=== PATIENT | female | born 2000 | race Caucasian/White ===

== ENCOUNTER → 2020-01-07 16:40 | Outpatient (CLI) | payer MEDICAID, SELFPAY ==
[2020-01-07 18:25] LABS: HCG,Quantitative 20028 mIU/ml (0-5.42)
== END ==
PROVIDERS: Visit Provider Nurse Practitioner Obstetrics & Gynecology
DX: Z34.90 Encounter for supervision of normal pregnancy, unspecified, unspecified trimester (principal)
CPT/HCPCS: 36415; 84702

== ENCOUNTER → 2020-01-16 15:09 | Outpatient (CLI) | payer MEDICAID, SELFPAY ==
--- NOTE | 2020-01-16 15:13 | US_ITS ---
PROCEDURE: US OB TRANSVAGINAL CLINICAL INDICATION: confirmation dates of Early Ob ultrasound for dates COMPARISON: No exams were available for comparison FINDINGS: An intrauterine gestational sac is present with a pole with a crown-rump length of 1.31cm correlating to gestational age of 7weeks 4days. heart tones are present with an FHR of 163bpm. Yolk sac is noted. Along the right aspect the gestational sac there is a curvilinear area of decreased echogenicity suspicious for small subchorionic bleed measuring 3 mm in thickness and 13 mm in length. IMPRESSION: Live intrauterine gestation at 7 weeks 4 days with suspected small subchorionic bleed Estimated due date by Ultrasound is 08/30/2020 Dictated by: Curtis Olvera MD 01/16/2020 18:28 Electronically signed by Curtis Olvera MD in [place] 01/16/2020 18:28
== END ==
PROVIDERS: Visit Provider Nurse Practitioner Obstetrics & Gynecology
DX: O26.841 Uterine size-date discrepancy, first trimester (principal)
CPT/HCPCS: 76817

== ENCOUNTER → 2020-01-21 17:14 | Outpatient (CLI) | payer MEDICAID, SELFPAY ==
[2020-01-21 18:10] LABS: Basophils % 0.3 % (0.1-2.0); Eosinophils # 0.1 K/mm3 (0.0-0.4); Eosinophils % 0.9 % (0.1-12.0); Hematocrit 39.8 % (37.0-47.0); Hemoglobin 13.7 g/dL (12.2-16.2); Lymphocytes # 3.9 K/mm3 (0.7-4.5); Lymphocytes % 30.8 % (10-50); Mean Corpuscular HGB Conc 34.5 g/dL (31.8-35.4); Mean Corpuscular Hemoglobin 31.5 pg (27.0-31.2); Mean Corpuscular Volume 91.2 fl (81-99); Mean Platelet Volume 9.1 fl (7.4-10.4); Monocytes # 0.6 K/mm3 (0.1-1.0); Monocytes % 4.4 % (1.7-9.3); Neutrophils % 63.6 % (37.0-80.0); Platelet Count 284 K/mm3 (142-424); Red Blood Count 4.36 M/mm3 (4.20-5.40); Red Cell Distribution Width 12.3 % (11.5-17.5); White Blood Count 12.5 K/mm3 (4.8-10.8)
[2020-01-23 11:24] LABS: HIV Screen 4th Generation wRfx Non Reactive (Non Reactive)
[2020-01-23 15:32] LABS: Hepatitis B Surface Antigen Negative (Negative); Hepatitis C Antibody 0.1 s/co ratio (0.0-0.9); Rapid Plasma Reagin Ab Titer Non Reactive (NonRea<1:1); Rubella Antibodies, IgG <0.90 index (Immune >0.99)
== END ==
PROVIDERS: Visit Provider Nurse Practitioner Obstetrics & Gynecology
DX: Z34.90 Encounter for supervision of normal pregnancy, unspecified, unspecified trimester (principal)
CPT/HCPCS: 36415; 85025; 86592; 86703; 86762; 86850; 87340; 87380; G0432

== ENCOUNTER → 2020-01-26 14:53 | Outpatient (CLI) | payer MEDICAID, SELFPAY ==
--- NOTE | 2020-01-26 14:53 | US_ITS ---
PROCEDURE: US OB TRANSVAGINAL CLINICAL INDICATION: for dates Early Ob ultrasound for dates COMPARISON: US OB TRANSVAGINAL from 01/16/2020 FINDINGS: An intrauterine gestational sac is present with a pole with a crown-rump length of 2.08cm correlating to gestational age of 8weeks 5days. heart tones are present with an FHR of 164bpm. Yolk sac is noted. IMPRESSION: Live IUP at 8 weeks 5 days Estimated due date by Ultrasound is 09/01/2020 Dictated by: Curtis Olvera MD 01/26/2020 16:19 Electronically signed by Curtis Olvera MD in [facility] 01/26/2020 16:19
== END ==
PROVIDERS: PCP Nurse Practitioner Obstetrics & Gynecology; Visit Provider Nurse Practitioner Obstetrics & Gynecology
DX: Z34.90 Encounter for supervision of normal pregnancy, unspecified, unspecified trimester (principal)
CPT/HCPCS: 76817

== ENCOUNTER → 2020-02-05 14:49 | Outpatient (CLI) | payer MEDICAID, SELFPAY ==
[2020-02-05 16:55] LABS: HCG,Quantitative 67642 mIU/ml (0-5.42)
== END ==
PROVIDERS: Visit Provider Nurse Practitioner Obstetrics & Gynecology
DX: Z34.90 Encounter for supervision of normal pregnancy, unspecified, unspecified trimester (principal)
CPT/HCPCS: 36415; 84702

== ENCOUNTER 2020-02-05 15:10 | Emergency (ER) | payer MEDICAID, SELFPAY ==
[2020-02-05 15:24] VITALS: BP 130/70; PULSE 80; RESP 18; TEMP 36.6; O2SAT 99
--- NOTE | 2020-02-05 15:34 | HMH.EDGENADL ---
ED Disposition Clinical Impression: Vaginal bleeding affecting early , Intrauterine Disposition: Home, Self-Care Condition on Discharge: Good Instructions: DI for Threatened Additional Instructions: You have been evaluated for bleeding in the first trimester of . This could be a normal or a threatened miscarriage. 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 Return to the emergency department if you have any new or worsening symptoms, vomiting, increased bleeding, increased pain, any other concerns. Referrals: PCP,No [Primary Care Provider] - Time of Disposition: 16:51 - Critical Care Critical Care Time: No Attestation: On 02/05/20, the high probability of a clinically significant, sudden or life threatening deterioration of the following system(s) required my full and direct attention, intervention and personal management. The time I documented below is in addition to time spent performing reported procedures but includes the following listed in this critical care notation. Medical Decision Making - Medical Records Medical records reviewed: Yes: I reviewed the patient's medical records. - Zachary Inquiry Pt receiving controlled substance: No Vital Signs: 02/05/20 15:24 02/05/20 15:42 02/05/20 16:12 Temperature 97.8 F Temperature Source Oral Pulse Rate Pulse Rate [Radial] 80 77 78 Respiratory Rate 18 20 18 Blood Pressure Blood Pressure [Right Arm] 130/70 144/82 H 112/70 Blood Pressure Mean [Right Arm] 90 102 84 Blood Pressure Source Blood Pressure Source [Right Arm] Automatic Cuff Automatic Cuff Automatic Cuff Blood Pressure Position Blood Pressure Position [Right Arm] Sitting Supine Supine 02 Sat by Pulse Oximetry 99 99 99 Oxygen Delivery Method Room Air Room Air Room Air 02/05/20 17:01 Temperature 97.8 F Temperature Source Oral Pulse Rate 78 Pulse Rate [Radial] Respiratory Rate 18 Blood Pressure 112/70 Blood Pressure [Right Arm] Blood Pressure Mean [Right Arm] Blood Pressure Source Automatic Cuff Blood Pressure Source [Right Arm] Blood Pressure Position Sitting Blood Pressure Position [Right Arm] 02 Sat by Pulse Oximetry Oxygen Delivery Method Room Air - Lab Data Lab Results 02/05/20 16:09: WBC 12.8 H, RBC 4.45, Hgb 14.2, Hct 40.3, MCV 90.5, MCH 31.9 H, MCHC 35.2, RDW 12.3, Plt Count 261, MPV 8.6, Neut % (Auto) 71.4, Lymph % (Auto) 23.5, [place] % (Auto) 3.9, Eos % (Auto) 0.9, Baso % (Auto) 0.2, Neut # (Auto) 9.2 H, Lymph # (Auto) 3.0, [place] # (Auto) 0.5, Eos # (Auto) 0.1, Baso # (Auto) 0.0 02/05/20 16:18: Urine Color Yellow, Urine Appearance Clear, Urine pH 5.5, Ur Specific [place] >= 1.030, Urine Protein Negative, Urine Glucose (UA) Negative, Urine Ketones Negative, Urine Blood Trace-i, Urine Nitrate Negative, Urine Bilirubin Negative, Urine Urobilinogen 0.2, Ur Leukocyte Esterase Negative, Urine WBC Occasional, Ur Squamous Epith Cells 3-5, Urine Bacteria Trace Result diagrams: 02/05/20 16:09 Orders (Tests/Meds): ORDERS Category Date Time Status HCG,Quantitative Stat Lab 02/05/20 16:09 Received Medical Decision Narrative: In summary this is a 19-year-old G1, P0 female presenting to the emergency department with first trimester vaginal bleeding. Patient is in no acute distress on arrival. Vital signs are stable, no tachycardia. Differential diagnoses include implantation bleed, normal intrauterine , threatened miscarriage. Plan to obtain CBC, beta hCG, urinalysis. Patient has blood bank results that states she is be positive. Does not require RhoGam. Laboratory results are generally unremarkable. No significant anemia. Urinalysis does not show signs of urinary tract infection. Bedside ultrasound shows a intrauterine with cardiac activity. Patient given instructions for conservative management and threatened miscarriage. She will follow-up with her OB/G
[2020-02-05 15:42] VITALS: BP 144/82; PULSE 77; RESP 20; O2SAT 99
[2020-02-05 16:12] VITALS: BP 112/70; PULSE 78; RESP 18; O2SAT 99
[2020-02-05 16:26] LABS: Microscopic, Urine URINE MICROSCOPIC (MICROSCOPIC)
[2020-02-05 16:29] LABS: Appearance,Urine CLEAR (Clear); Bilirubin,Urine Negative (Negative); Blood, Urine TRACE-I (Negative); Color,Urine YELLOW (Yellow); Glucose,Urine (UA) Negative (Negative); Ketones,Urine Negative (Negative); Leukocyte Esterase,Urine Negative (Negative); Nitrate,Urine Negative (Negative); PH,Urine 5.5 (5.0-8.5); Protein,Urine Negative (Negative); Specific Gravity, Urine >= 1.030 (1.005-1.030); Urobilinogen,Urine 0.2 EU/dl (0.2)
[2020-02-05 16:30] LABS: Basophils % 0.2 % (0.1-2.0); Eosinophils # 0.1 K/mm3 (0.0-0.4); Eosinophils % 0.9 % (0.1-12.0); Hematocrit 40.3 % (37.0-47.0); Hemoglobin 14.2 g/dL (12.2-16.2); Lymphocytes % 23.5 % (10-50); Mean Corpuscular HGB Conc 35.2 g/dL (31.8-35.4); Mean Corpuscular Hemoglobin 31.9 pg (27.0-31.2); Mean Corpuscular Volume 90.5 fl (81-99); Mean Platelet Volume 8.6 fl (7.4-10.4); Monocytes # 0.5 K/mm3 (0.1-1.0); Monocytes % 3.9 % (1.7-9.3); Neutrophils # 9.2 K/mm3 (1.8-7.8); Neutrophils % 71.4 % (37.0-80.0); Platelet Count 261 K/mm3 (142-424); Red Blood Count 4.45 M/mm3 (4.20-5.40); Red Cell Distribution Width 12.3 % (11.5-17.5); White Blood Count 12.8 K/mm3 (4.8-10.8)
[2020-02-05 16:50] LABS: Bacteria,Urine Trace /lpf; WBC,Urine Occasional #/hpf (0-3)
[2020-02-05 17:01] VITALS: BP 112/70; PULSE 78; RESP 18; TEMP 36.6; O2SAT 99
== END 2020-02-05 17:03 | disposition home or self-care (01) ==
PROVIDERS: Emergency Provider Emergency Medicine
DX: O20.9 Hemorrhage in early pregnancy, unspecified (principal); Z3A.10 10 weeks gestation of pregnancy
CPT/HCPCS: 81001; 84702; 85025; 99283

== ENCOUNTER → 2020-02-10 17:34 | Outpatient (CLI) | payer MEDICAID, SELFPAY ==
[2020-02-10 23:59] LABS: HCG,Quantitative 60475 mIU/ml (0-5.42)
== END ==
PROVIDERS: Visit Provider Nurse Practitioner Obstetrics & Gynecology
DX: Z34.90 Encounter for supervision of normal pregnancy, unspecified, unspecified trimester (principal)
CPT/HCPCS: 36415; 84702

== ENCOUNTER 2020-02-23 17:15 | Emergency (ER) | payer MEDICAID, SELFPAY ==
[2020-02-23 17:47] VITALS: BP 127/74; PULSE 91; RESP 14; TEMP 36.7; O2SAT 96; BMI 22.4
--- NOTE | 2020-02-23 18:20 | HMH.EDUTC ---
[facility] – [place] Disposition Clinical Impression: Nausea & vomiting Qualifiers: Vomiting type: unspecified Vomiting Intractability: unspecified Qualified Code(s): R11.2 - Nausea with vomiting, unspecified Disposition: Home, Self-Care Condition on Discharge: Good Instructions: Support (Alternative Therapy), DI for Hyperemesis Gravidarum, Preventing the Spread of Coronavirus Discharge Instructions Additional Instructions: ? Drink extra fluids with and between meals. If you have difficulty drinking, try very small amounts of water or suck on ice chips. ? Avoid fruit juices, as these do not replace minerals and can actually increase diarrhea. ? Children and adults can use sports drinks to replenish electrolytes. Younger children and infants should use products formulated for children, like oral rehydration solutions. ? Eat food in small amounts and let your stomach recover. ? Get lots of rest. You may feel tired or weak. ? No greasy or fried foods for the next 24-48 hours BRAT diet Bananas Rice Apples and [place] ? Make sure to drink plenty of liquids ? Return if needed ? Straight to ER if any life threatening symptoms ? Follow up with family doctor in the next 48-72 hours if no improvement or any worsening of symptoms Follow up with Dr Porter if no improvement in vomiting Use Phenergan suppository if you are unable to keep anything down as you was was instructed in the [facility] Return if needed You was tested for COVID 19 call back to the [facility] for your results tomorrow to see if they are back No work until negative COVID test Straight to ER if any life threatening symptoms Prescriptions: Promethazine HCl [Phenergan 12.5mg Supp Take Home Pack (4)] 12.5 anson RC Q6HP PRN #1 anson PRN Reason: Vomiting Promethazine HCl [Phenergan 12.5mg tablet] 12.5 mg PO Q6H PRN #12 tab PRN Reason: Vomiting Transmission Status: Pending to [id number] Referrals: Peter Siddiqui APRN [Primary Care Provider] - As needed Forms: Work/School Release Time of Disposition: 19:02 Medical Decision Making - Zachary Inquiry Pt receiving controlled substance: No Zachary was queried for this patient: No Vital Signs: 02/23/20 17:47 Temperature 98.0 F Temperature Source Oral Pulse Rate [Right Brachial] 91 H Respiratory Rate 14 Blood Pressure [Right Arm] 127/74 Blood Pressure Mean [Right Arm] 91 Blood Pressure Source [Right Arm] Automatic Cuff Blood Pressure Position [Right Arm] Sitting 02 Sat by Pulse Oximetry 96 Oxygen Delivery Method Room Air Orders (Tests/Meds): ORDERS Category Date Time Status Coronavirus 19 Swab (OUTPT) Routine Lab 02/23/20 17:55 Received - Physician Consults Physician Consulted: German Time: 18:50 Reason -: Gynocological Eval/Care Comment/Response: Spoke with Dr German HARP and informed him of patient being 13wks OB having nausea and vomiting on multiple times today advised give her take home pack of phenergan suppositories to use if she is unable to keep anything down and give her prescription for oral Phenergan 12.5 Medical Decision Narrative: No vomiting since arrival [facility] [place] HPI - General Stated complaint: Needs checked out, Dr leal for work Time Seen by Provider: 02/23/20 18:21 Mode of Arrival: Ambulatory Source of Information: Patient Limitations: No Limitations Description of Symptoms (Recalled from Triage Doc. by RN): PATIENT IS 13 WEEKS , C/O COUGH AND NAUSEA. HER EMPLOYER IS REQUESTING HER TO GET A COVID TEST HEENT Symptoms (Recalled from RN notes): No Resp Symptoms (Recalled from RN notes): Yes Skin Symptoms (Recalled from RN notes): No MS Symptoms (Recalled from RN notes): No Functional Status (Recalled from RN notes): WNL - History of Present Illness Provider Complaint: Patient states that she has been having nausea and vomiting on and off throughout her 13wks of States that today she has been having runny nose and cough along with nausea and vomiting State that she has vomited aroun
[2020-02-23 19:09] VITALS: BP 127/74; PULSE 91; RESP 14; TEMP 36.7; O2SAT 96
== END 2020-02-23 19:18 | disposition home or self-care (01) ==
PROVIDERS: Emergency Provider Nurse Practitioner; PCP Nurse Practitioner Family
DX: Z20.828 Contact with and (suspected) exposure to other viral communicable diseases (principal); O21.0 Mild hyperemesis gravidarum; Z3A.13 13 weeks gestation of pregnancy; R05 Cough
CPT/HCPCS: 99201; U0003

== ENCOUNTER → 2020-03-24 14:33 | Outpatient (CLI) | payer MEDICAID, SELFPAY ==
[2020-03-28 04:06] LABS: AFP Value 57.1 ng/mL (.); DIA Value 313.64 pg/mL (.); DSR (Second Trimester) 1 IN 9999 (.); Maternal Age At EDD 22.5 yr (.); OSBR Risk 1 IN 3133 (.); Results Report (.); hCG MoM 0.44 (.); hCG Value 16146 mIU/mL (.); uE3 MoM 1.35 (.); uE3 Value 1.55 ng/mL (.)
[2020-03-28 14:02] LABS: Gestat. Age Based On EDD (.)
== END ==
PROVIDERS: Visit Provider Nurse Practitioner Obstetrics & Gynecology
DX: Z34.90 Encounter for supervision of normal pregnancy, unspecified, unspecified trimester (principal)
CPT/HCPCS: 36415; 82106

== ENCOUNTER 2020-03-31 20:14 | Emergency (ER) | payer MEDICAID, SELFPAY ==
[2020-03-31 20:24] VITALS: BP 131/70; PULSE 79; RESP 14; TEMP 36.7; O2SAT 96; BMI 26.1
[2020-03-31 20:36] LABS: Microscopic, Urine URINE MICROSCOPIC (MICROSCOPIC)
[2020-03-31 20:40] LABS: Appearance,Urine CLEAR (Clear); Bilirubin,Urine Negative (Negative); Blood, Urine Negative (Negative); Color,Urine YELLOW (Yellow); Glucose,Urine (UA) Negative (Negative); Ketones,Urine 1+ (Negative); Leukocyte Esterase,Urine Negative (Negative); Nitrate,Urine Negative (Negative); Protein,Urine Negative (Negative); Specific Gravity, Urine >= 1.030 (1.005-1.030); Urobilinogen,Urine 0.2 EU/dl (0.2)
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
--- NOTE | 2020-03-31 20:47 | CT_ITS ---
PROCEDURE: CT CERVICAL SPINE WO CON CLINICAL INDICATION: fall Posttraumatic pain, Neck injury with pain, contusion/abrasion or hematoma, cervical sprain/strain the COMPARISON: No exams were available for comparison TECHNIQUE: Axial images obtained with sagittal and coronal reformats. All CT scans at the facility use one or more dose reduction, viz: automated exposure control, ma/kV adjustment per patient size (including targeted exams where dose is matched to indication, i.e. head), or iterative reconstruction technique. Axial spiral CT scanning performed of the cervical spine beginning at the base of the skull and continuing to the upper T-spine. 3-D multiplanar reconstruction with 3-D manipulation of volumetric data set in image rendering was completed by the radiologist and/or technologist with the supervision of the radiologist on independent workstation. FINDINGS: There is straightening of the cervical lordosis. No fracture or dislocation. No lytic or blastic change. No prevertebral soft tissue swelling. Small retention cyst is present in the sphenoid sinus laterally on the left. IMPRESSION: 1. No acute fracture. 2. There is straightening/reversal of the normal lordosis which may be due to patient positioning or muscle spasm. Dictated by: Curtis Olvera MD 04/01/2020 09:22 Curtis Olvera MD in [place] 04/01/2020 09:22
[2020-03-31 20:50] LABS: Bacteria,Urine 2+ /lpf
[2020-03-31 20:51] LABS: Basophils % 0.2 % (0.1-2.0); Eosinophils # 0.1 K/mm3 (0.0-0.4); Eosinophils % 0.7 % (0.1-12.0); Hematocrit 43.1 % (37.0-47.0); Hemoglobin 14.9 g/dL (12.2-16.2); Lymphocytes # 2.3 K/mm3 (0.7-4.5); Lymphocytes % 17.1 % (10-50); Mean Corpuscular HGB Conc 34.4 g/dL (31.8-35.4); Mean Corpuscular Hemoglobin 31.9 pg (27.0-31.2); Mean Corpuscular Volume 92.7 fl (81-99); Mean Platelet Volume 8.4 fl (7.4-10.4); Monocytes # 0.6 K/mm3 (0.1-1.0); Monocytes % 4.5 % (1.7-9.3); Neutrophils # 10.7 K/mm3 (1.8-7.8); Neutrophils % 77.6 % (37.0-80.0); Platelet Count 312 K/mm3 (142-424); Red Blood Count 4.65 M/mm3 (4.20-5.40); Red Cell Distribution Width 12.7 % (11.5-17.5); White Blood Count 13.8 K/mm3 (4.8-10.8)
[2020-03-31 20:52] LABS: Amphetamine/Metha Screen,Urine Negative ng/ml (<1000)
[2020-03-31 20:52] LABS: Chloride 102 mmol/L (98-107); Potassium 3.8 mmoL/L (3.5-5.1); Sodium 137 mmol/L (136-145)
[2020-03-31 20:53] LABS: Barbiturates Screen,Urine Negative ng/ml (<200)
[2020-03-31 20:54] LABS: Benzodiazepines Screen,Urine Negative ng/ml (<200); Cannabinoid Screen,Urine Negative ng/ml (<50)
[2020-03-31 20:55] LABS: Anion Gap 13.8 mEq/L (5-15); Blood Urea Nitrogen 9 mg/dl (7-17); Carbon Dioxide 25 mmol/L (22.0-30.0); Creatinine Clearance Estimated 248 mL/min (50-200); Estimated Glomerular Filt Rate 200 ml/min (>60); GFR (African American) 242 ML/MIN (>60)
[2020-03-31 20:55] LABS: Cocaine Screen,Urine Negative ng/ml (<300); Methadone Screen,Urine Negative ng/ml (<300)
[2020-03-31 20:56] LABS: Opiate Screen,Urine Negative ng/ml (<300)
[2020-03-31 20:56] LABS: Calcium 9.7 mg/dl (8.4-10.2); Glucose 98 mg/dl (74-100)
[2020-03-31 20:57] LABS: Phencyclidine Screen,Urine Negative ng/ml (<25)
--- NOTE | 2020-03-31 21:00 | PC.NURSE ---
pt to CT at this time
--- NOTE | 2020-03-31 21:23 | PC.NURSE ---
cleared patients cspine with the [place] cspine rules
[2020-03-31 21:35] VITALS: BP 107/62; PULSE 87; RESP 16; O2SAT 99
[2020-03-31 22:01] VITALS: BP 110/68; PULSE 71; RESP 18; O2SAT 100
[2020-03-31 22:19] VITALS: BP 110/68; PULSE 71; RESP 18; TEMP 36.7; O2SAT 100
== END 2020-03-31 22:24 | disposition home or self-care (01) ==
PROVIDERS: Emergency Provider Emergency Medicine; PCP Nurse Practitioner Family
DX: R55 Syncope and collapse (principal); Z3A.18 18 weeks gestation of pregnancy; S01.81XA Laceration without foreign body of other part of head, initial encounter; W18.39XA Other fall on same level, initial encounter; Y92.89 Other specified places as the place of occurrence of the external cause
CPT/HCPCS: 12011; 72125; 80048; 80305; 81001; 85025; 87086; 96365; 99284

== ENCOUNTER → 2020-04-14 13:15 | Outpatient (CLI) | payer MEDICAID, SELFPAY ==
--- NOTE | 2020-04-14 13:15 | US_ITS ---
PROCEDURE: US OB /MATERNAL DETAIL CLINICAL INDICATION: 20 week gestation Anatomy scan COMPARISON: US US OB TRANSVAGINAL from 01/26/2020 FINDINGS: There is a single live fetus which is in cephalic presentation. heart and body motion is noted. The cervix is closed and measures 3 cm. The placenta is anterior and grade 1. Complete survey performed and was unremarkable on the submitted images as in PACS. No discrete anomalies identified on survey imaging by technologist. Active fetus. Three-vessel cord with satisfactory umbilical cord insertion. 4- chamber heart noted. Survey of brain & ventricles Unremarkable. Face and neck survey unremarkable. Diaphragm and chest views unremarkable. Abdomen: Both kidneys noted and unremarkable. Stomach noted and satisfactory. Spine: Survey of the spine satisfactory with no anomalies identified nor imaged. Both arms and legs noted. Amniotic Fluid: Adequate. Maternal adnexa: No significant findings. Measurements: Average ultrasound age 20weeks 3days. Gestational Age 20weeks Estimated due date by ultrasound age 0208/29/2020. Estimated weight 343g BPD = 20weeks 5days OFD = 21weeks 2days HC = 20weeks 2days AC = 20weeks 3days FL = 20weeks 1day Growth Percentile= 62Percent% Heart Rate = 138bpm Cerebellum = 21weeks 2days Humerus = 20weeks 5days HC/AC is 1.17 CI is 0.76 FL/BPD is 0.67 FL/AC is 0.21 IMPRESSION: Live IUP in cephalic presentation with an average ultrasound age of 20 weeks 3 days. No obvious anomalies. Please see above for detail Dictated by: Curtis Olvera MD 04/15/2020 11:49 Curtis Olvera MD in [place] 04/15/2020 11:49
== END ==
PROVIDERS: PCP Nurse Practitioner Family; Visit Provider Nurse Practitioner Obstetrics & Gynecology
DX: Z34.90 Encounter for supervision of normal pregnancy, unspecified, unspecified trimester (principal); Z3A.20 20 weeks gestation of pregnancy
CPT/HCPCS: 76811

== ENCOUNTER → 2020-06-02 10:25 | Outpatient (CLI) | payer MEDICAID, SELFPAY ==
[2020-06-02 20:56] LABS: Glucose,Fasting 79 mg/dl (74-100)
[2020-06-02 20:57] LABS: Glucose 1 Hour 122 mg/dL (74-100)
== END ==
PROVIDERS: Visit Provider Nurse Practitioner Obstetrics & Gynecology
DX: Z34.90 Encounter for supervision of normal pregnancy, unspecified, unspecified trimester (principal); Z3A.24 24 weeks gestation of pregnancy
CPT/HCPCS: 36415; 82951

== ENCOUNTER → 2020-06-09 18:19 | Outpatient (CLI) | payer MEDICAID, SELFPAY ==
[2020-06-09 18:20] LABS: Microscopic, Urine URINE MICROSCOPIC (MICROSCOPIC)
[2020-06-09 18:44] LABS: Appearance,Urine CLEAR (Clear); Bilirubin,Urine Negative (Negative); Blood, Urine Negative (Negative); Color,Urine YELLOW (Yellow); Glucose,Urine (UA) Negative (Negative); Ketones,Urine TRACE (Negative); Leukocyte Esterase,Urine Negative (Negative); Nitrate,Urine Negative (Negative); PH,Urine 5.5 (5.0-8.5); Protein,Urine Negative (Negative); Specific Gravity, Urine 1.025 (1.005-1.030); Urobilinogen,Urine 0.2 EU/dl (0.2)
== END ==
PROVIDERS: Visit Provider Nurse Practitioner Obstetrics & Gynecology
DX: Z34.90 Encounter for supervision of normal pregnancy, unspecified, unspecified trimester (principal); Z3A.28 28 weeks gestation of pregnancy
CPT/HCPCS: 81001

== ENCOUNTER 2020-06-30 07:57 | Outpatient (CLI) | payer MEDICAID, SELFPAY ==
[2020-06-30 08:20] VITALS: BMI 28.1
[2020-06-30 08:27] VITALS: BP 128/91; PULSE 97; RESP 18; TEMP 36.6; O2SAT 99; BMI 29.1
[2020-06-30 08:33] LABS: Appearance,Urine CLEAR (Clear); Bilirubin,Urine Negative (Negative); Blood, Urine Negative (Negative); Color,Urine YELLOW (Yellow); Glucose,Urine (UA) Negative (Negative); Ketones,Urine Negative (Negative); Leukocyte Esterase,Urine Negative (Negative); Microscopic, Urine URINE MICROSCOPIC (MICROSCOPIC); Nitrate,Urine Negative (Negative); Protein,Urine Negative (Negative); Specific Gravity, Urine 1.015 (1.005-1.030); Urobilinogen,Urine 0.2 EU/dl (0.2)
[2020-06-30 08:43] LABS: Amphetamine/Metha Screen,Urine Negative ng/ml (<1000)
[2020-06-30 08:44] LABS: Barbiturates Screen,Urine Negative ng/ml (<200); Benzodiazepines Screen,Urine Negative ng/ml (<200)
[2020-06-30 08:45] LABS: Cannabinoid Screen,Urine Negative ng/ml (<50)
[2020-06-30 08:46] LABS: Cocaine Screen,Urine Negative ng/ml (<300); Methadone Screen,Urine Negative ng/ml (<300)
[2020-06-30 08:47] LABS: Opiate Screen,Urine Negative ng/ml (<300); Phencyclidine Screen,Urine Negative ng/ml (<25)
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
== END 2020-06-30 12:51 | disposition home or self-care (01) ==
LOC: OBOUT 08:04 → OB 08:04
PROVIDERS: PCP Nurse Practitioner Family; Visit Provider Nurse Practitioner Obstetrics & Gynecology
DX: O26.899 Other specified pregnancy related conditions, unspecified trimester (principal); Z3A.31 31 weeks gestation of pregnancy; V89.2XXA Person injured in unspecified motor-vehicle accident, traffic, initial encounter
CPT/HCPCS: 59025; 80305; 81001; G0463

== ENCOUNTER → 2020-08-04 16:40 | Outpatient (CLI) | payer MEDICAID, SELFPAY | LOC: LAB 16:41 → LAB.DROPOF 16:44 | PROVIDERS: Visit Provider Nurse Practitioner Obstetrics & Gynecology | DX: Z34.90 Encounter for supervision of normal pregnancy, unspecified, unspecified trimester (principal) | CPT/HCPCS: 86403 ==

== ENCOUNTER 2020-08-27 15:31 | Outpatient (CLI) | payer MEDICAID, SELFPAY ==
[2020-08-27 16:24] VITALS: BP 132/87; PULSE 110; RESP 16; TEMP 36.5; O2SAT 96; BMI 30.4
[2020-08-27 17:08] LABS: Microscopic, Urine URINE MICROSCOPIC (MICROSCOPIC)
[2020-08-27 17:16] LABS: Appearance,Urine CLEAR (Clear); Bilirubin,Urine Negative (Negative); Blood, Urine Negative (Negative); Color,Urine YELLOW (Yellow); Glucose,Urine (UA) Negative (Negative); Ketones,Urine Negative (Negative); Leukocyte Esterase,Urine Negative (Negative); Nitrate,Urine Negative (Negative); Protein,Urine Negative (Negative); Specific Gravity, Urine 1.015 (1.005-1.030); Urobilinogen,Urine 0.2 EU/dl (0.2)
[2020-08-27 17:27] LABS: Amphetamine/Metha Screen,Urine Negative ng/ml (<1000); Benzodiazepines Screen,Urine Negative ng/ml (<200)
[2020-08-27 17:28] LABS: Barbiturates Screen,Urine Negative ng/ml (<200)
[2020-08-27 17:29] LABS: Cannabinoid Screen,Urine Negative ng/ml (<50); Cocaine Screen,Urine Negative ng/ml (<300)
[2020-08-27 17:30] LABS: Bacteria,Urine 2+ /lpf; Methadone Screen,Urine Negative ng/ml (<300); WBC,Urine Occasional #/hpf (0-3)
[2020-08-27 17:31] LABS: Opiate Screen,Urine Negative ng/ml (<300)
[2020-08-27 17:32] LABS: Phencyclidine Screen,Urine Negative ng/ml (<25)
== END 2020-08-27 17:35 | disposition home or self-care (01) ==
LOC: OBOUT 15:34 → OB 15:35
PROVIDERS: PCP Nurse Practitioner Obstetrics & Gynecology; Visit Provider Nurse Practitioner Obstetrics & Gynecology
DX: O47.03 False labor before 37 completed weeks of gestation, third trimester (principal); Z3A.39 39 weeks gestation of pregnancy
CPT/HCPCS: 59025; 80305; 81001; 87086; G0463

== ENCOUNTER → 2020-08-31 07:55 | Outpatient (CLI) | payer MEDICAID, SELFPAY | PROVIDERS: PCP Nurse Practitioner Family; Visit Provider Nurse Practitioner Obstetrics & Gynecology | DX: Z34.90 Encounter for supervision of normal pregnancy, unspecified, unspecified trimester (principal); Z20.822 Contact with and (suspected) exposure to COVID-19 | CPT/HCPCS: U0003 ==

== ENCOUNTER 2020-09-01 05:06 | Inpatient (IN) | payer MEDICAID, SELFPAY ==
[2020-09-01 05:10] VITALS: BMI 30.6
[2020-09-01 05:15] VITALS: BP 142/84; PULSE 103; RESP 18; TEMP 36.4; O2SAT 98; BMI 30.6
[2020-09-01 05:24] VITALS: BP 142/84; PULSE 103; RESP 18; TEMP 36.4; O2SAT 98
[2020-09-01 06:04] LABS: Microscopic, Urine URINE MICROSCOPIC (MICROSCOPIC)
[2020-09-01 06:15] LABS: Appearance,Urine CLEAR (Clear); Bilirubin,Urine Negative (Negative); Blood, Urine Negative (Negative); Color,Urine YELLOW (Yellow); Glucose,Urine (UA) Negative (Negative); Ketones,Urine Negative (Negative); Leukocyte Esterase,Urine Negative (Negative); Nitrate,Urine Negative (Negative); PH,Urine 5.5 (5.0-8.5); Protein,Urine Negative (Negative); Specific Gravity, Urine >= 1.030 (1.005-1.030); Urobilinogen,Urine 0.2 EU/dl (0.2)
[2020-09-01 06:26] LABS: Amphetamine/Metha Screen,Urine Negative ng/ml (<1000)
[2020-09-01 06:27] LABS: Barbiturates Screen,Urine Negative ng/ml (<200); Benzodiazepines Screen,Urine Negative ng/ml (<200)
[2020-09-01 06:28] LABS: Cannabinoid Screen,Urine Negative ng/ml (<50)
[2020-09-01 06:29] LABS: Cocaine Screen,Urine Negative ng/ml (<300); Methadone Screen,Urine Negative ng/ml (<300)
[2020-09-01 06:30] LABS: Opiate Screen,Urine Negative ng/ml (<300)
[2020-09-01 06:31] LABS: Phencyclidine Screen,Urine Negative ng/ml (<25)
[2020-09-01 06:58] LABS: Basophils % 0.2 % (0.1-2.0); Eosinophils # 0.1 K/mm3 (0.0-0.4); Eosinophils % 0.9 % (0.1-12.0); Hematocrit 37.4 % (37.0-47.0); Hemoglobin 12.6 g/dL (12.2-16.2); Lymphocytes # 3.1 K/mm3 (0.7-4.5); Lymphocytes % 23.2 % (10-50); Mean Corpuscular HGB Conc 33.8 g/dL (31.8-35.4); Mean Corpuscular Hemoglobin 31.5 pg (27.0-31.2); Mean Corpuscular Volume 93.3 fl (81-99); Mean Platelet Volume 9.2 fl (7.4-10.4); Monocytes # 0.7 K/mm3 (0.1-1.0); Neutrophils # 9.3 K/mm3 (1.8-7.8); Neutrophils % 70.7 % (37.0-80.0); Platelet Count 292 K/mm3 (142-424); Red Blood Count 4.01 M/mm3 (4.20-5.40); Red Cell Distribution Width 13.1 % (11.5-17.5); White Blood Count 13.2 K/mm3 (4.8-10.8)
--- NOTE | 2020-09-01 08:50 | HMH.PHAINT ---
MEDICATION RECONCILIATION COMPLETED ON PATIENT USING EXTERNAL FILL HISTORY FROM PHARMACY. -PEDRO [place], JBD
--- NOTE | 2020-09-01 09:21 | HMH.OBAPHP ---
OB - H&P: HPI Antepartum - History of Present Illness Chief complaint: Term History of present illness: She is a 20-year-old 1 para 0 at 40 weeks gestational age. Her due date is today. As result of that we have elected to bring her in for induction of labor at term. - History of Present care: good care Ultrasounds: normal 1st trimester US, normal mid trimester US Medical complications: none [facility] History I have reviewed the patient's past medical history: Yes *Have you ever received a pneumonia vaccine?: No *Have you received a flu vaccine this season?: No Other Medical History: Reports: Other Laterality Cases: Right: Other Other Surgeries: Yes: No Previous Surgery. No: Amputation: No Fractures: Yes - *Social History Smoking Status: Never smoker Alcohol Intake: never Alcohol Intake Frequency:: other Substance Use Type: denies use *Occupational Status:: unemployed *Travel in the last 8 weeks: None Family Hx:: Cancer, Diabetes MECHANISM ASSEMBLER history: No MECHANISM ASSEMBLER history Para: 0 Review of Systems - Review of Systems Review of systems:: pertinent systems reviewed and negative unless documented below Meds Home Medications Medication Instructions Recorded Confirmed Type ondansetron 4 mg disintegrating 4 mg PO Q6H PRN 30 Days #30 tab 06/23/20 09/01/20 Rx tablet Fluoxetine HCl [Prozac] 20 mg PO DAILY 08/27/20 09/01/20 History Vit Calc,Iron,Folic [Kpn] 1 tab PO DAILY 08/27/20 09/01/20 History Allergies Allergy/AdvReac Type Severity Reaction Status Date / Time latex Allergy Verified 08/25/20 10:58 OB - H&P: Exam - Physical Exam Vital signs: Temp Pulse Resp BP Pulse Ox 97.5 F L 103 H 18 142/84 H 98 09/01/20 05:24 09/01/20 05:24 09/01/20 05:24 09/01/20 05:24 09/01/20 05:24 - Constitutional no acute distress - Routine HEENT Exam Head: Present: normocephalic Eye: Present: EOMI, PERRL ENT: Present: mucous membranes moist - Routine Neck Exam Present: supple, full ROM - Routine Respiratory Exam Absent: accessory muscle use (good air entry bilaterally), respiratory distress, wheezes, crackles - Routine Cardiovascular Exam Present: RRR. Absent: murmur - Routine Abdominal Exam Present: soft, normoactive bowel sounds. Absent: tenderness, distended, guarding - Routine Rectal Exam Patient deferred: visual exam, digital exam - Routine Exam Patient deferred: external exam, groin exam, perineal exam - Routine Extremities Exam Present: full ROM. Absent: cyanosis, edema - Routine Skin Exam Present: intact. Absent: cyanosis - Routine Neurological Exam Present: alert, oriented X3 - Routine Psychiatric Exam Present: normal affect OB - Results - Labs Labs: Short CBC 09/01/20 Range/Units 05:30 WBC 13.2 H (4.8-10.8) K/mm3 Hgb 12.6 (12.2-16.2) g/dL Hct 37.4 (37.0-47.0) % Plt Count 292 (142-424) K/mm3 Urine 09/01/20 Range/Units 05:30 Urine Color Yellow (Yellow) Urine Appearance Clear (Clear) Urine pH 5.5 (5.0-8.5) Ur Specific [place] >= 1.030 (1.005-1.030) Urine Protein Negative (Negative) Urine Glucose (UA) Negative (Negative) OB - A/P Antepartum (1) Normal delivery Status: Acute - Additional Plan Planning to breastfeed?: Yes Plan: induction Additional Information:: Her due date is today so we have brought her in for induction of labor at term.
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
--- NOTE | 2020-09-01 12:43 | HMH.ANESCL ---
[facility] Anesthesia Checklist - Patient Identification Patient Identification: Arm Band, Verbal (Name & ) - Structural Data Admitted From: Inpatient Planned Operative Procedure/s: ANNETTA - Anesthesia Plan Anesthesia Risk discussed: Yes Anesthesia Plan: Verified ASA Class: II Anesthesia Type: Epidural [facility] History I have reviewed the patient's past medical history: Yes *Have you ever received a pneumonia vaccine?: No *Have you received a flu vaccine this season?: No Other Medical History: Reports: Other Anesthesia experience/problems:: none Laterality Cases: Right: Other Other Surgeries: Yes: No Previous Surgery. No: Amputation: No Fractures: Yes - *Social History Smoking Status: Never smoker Alcohol Intake: never Alcohol Intake Frequency:: other Substance Use Type: denies use *Occupational Status:: unemployed *Travel in the last 8 weeks: None Family Hx:: Cancer, Diabetes SYSTEMS ACCOUNTANT history: No SYSTEMS ACCOUNTANT history Para: 0
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
[2020-09-01 16:33] LABS: Cord Blood PH 7.33 (7.35-7.45)
--- NOTE | 2020-09-01 17:33 | HMH.DN ---
- Delivery Note Delivery Date:: 09/01/20 Delivery Time:: 16:14 Anesthesia Type: Epidural Was labor medically induced?: Yes Induction method: per pitocin protocol Gestational age (weeks): 40 Infant delivered prior to 39 weeks?: No Infant Gender: Female at 1 minute: 7 at 5 minutes: 9 LAC or MLE?: LAC Delivery Procedure:: She is a 20-year-old 1 para 0 at 40 weeks gestational age. We brought her in for induction of labor at term. She was started on IV oxytocin had her membranes ruptured. Under labor epidural she progressed to full dilation and delivered with the assistance of a vacuum a liveborn female child at 4:14 PM in the afternoon of September 01, 2020. The baby was having prolonged bradycardia and we elected to place the vacuum on the baby's head when the baby's head was at the perineum. I had one pop-off and using a final gentle pull I was able to easily deliver the placenta intact. Deliver the head the anterior shoulder then delivered followed by the rest the infant's body atraumatically. The baby was vigorous and was stimulated. We allowed the cord to continue to pulsate for approximately 1 minute. The cord was then doubly clamped and cut and the was placed on the mother's abdomen for further care. The nurses assigned Apgars of 7 at 1 minute and 9 at 5 minutes. We then obtained cord blood as well as cord pH. Using gentle traction on the cord and countertraction on the fundus I was able to easily deliver the placenta intact. He had a normal three-vessel cord. She had 2 small labial tears 1 on each side that were repaired with interrupted 3-0 Vicryl Rapide suture. Estimated blood loss was approximately 200 cc. Laceration:: labial
[2020-09-01 20:07] VITALS: BP 133/71; PULSE 81; RESP 18; TEMP 36.6; O2SAT 97
[2020-09-02 00:27] VITALS: BP 134/80; PULSE 70; RESP 18; TEMP 36.6; O2SAT 99
[2020-09-02 03:57] VITALS: BP 132/77; PULSE 89; RESP 18; TEMP 36.5; O2SAT 98
[2020-09-02 07:17] LABS: Hematocrit 31.7 % (37.0-47.0); Hemoglobin 10.4 g/dL (12.2-16.2)
--- NOTE | 2020-09-02 10:03 | HMH.ACPN2 ---
Internal Medicine - PN: Subj *Date: 09/02/20 *Time: 10:03 Interval history: She is doing well this morning. She is eating and drinking and ambulating. She is 1 day post vaginal delivery. She is breast-feeding. Her lochia is normal. Exam Vital signs and Labs for Last 24 Hours: Temp Pulse Resp BP Pulse Ox 97.7 F 89 18 132/77 98 09/02/20 03:57 09/02/20 03:57 09/02/20 03:57 09/02/20 03:57 09/02/20 03:57 Laboratory Results - last 24 hr 09/02/20 06:40: Hgb 10.4 L, Hct 31.7 L I & O for Last 24 hours: Intake & Output 08/30/20 08/31/20 09/01/20 09/02/20 11:59 11:59 11:59 11:59 Output Total 500 / 500 Balance -500 / -500 Weight 184 lb - Constitutional no acute distress - *Routine HEENT Exam Head: Present: normocephalic Eye: Present: EOMI, PERRL ENT: Present: mucous membranes moist Assessment and Plan (1) Normal delivery Status: Acute Category: Medical Code(s): O80 - Encounter for full-term uncomplicated delivery - Assessment and plan all Dx Assessment and Plan for all problems:: She is doing very well. We will plan to send her home tomorrow. She is 1 day from a vaginal delivery.
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
--- NOTE | 2020-09-03 09:25 | HMH.OBDCSM ---
General - General Admission date:: 09/01/20 Discharge date: 09/03/20 HPI - History of Present Illness History of present illness: She is a 20-year-old 1 now para 0 who was 40 weeks gestational age. As result of that she was Hospital Course Hospital Course: She was started on IV oxytocin had her membranes ruptured. Under labor epidural progressed to full dilation and delivered with the assistance of a vacuum a liveborn female child at 4:14 PM in the afternoon of September 01, 2020. The baby was a liveborn female child weighing 7 pounds 13 ounces and had Apgars of 7 at 1 minute and 9 at 5 minutes. She has done well and has remained afebrile throughout her hospitalization. She has B+ blood, she is rubella nonimmune and will receive MMR. She was group B streptococcus negative. Her magnetic testing technician is Dr. Salazar. She is discharged home to follow-up with me in approximately 2 weeks time. She will continue with her vitamins and iron. She will continue breast-feeding. She was given the usual instructions with respect to limiting her activity, driving and sexual activity. Her condition on discharge is stable and improved. Rhogam Administration: Not Indicated Objective Vital signs: Temp Pulse Resp BP Pulse Ox 97.7 F 89 18 132/77 98 09/02/20 03:57 09/02/20 03:57 09/02/20 03:57 09/02/20 03:57 09/02/20 03:57 no acute distress - *Routine HEENT Exam Head: Present: normocephalic Eye: Present: EOMI, PERRL ENT: Present: mucous membranes moist DS: Diagnosis - Discharge Diagnosis (1) Normal delivery Status: Acute Discharge Plan - Patient Discharge Instructions ACTIVITY: No heavy lifting DIET: continue same diet Additional Instructions: *No heavy lifting or Strenuous activity. *Nothing in the Vagina for 6 weeks. Patient Instructions: Depression, Hemorrhage, DI for Labor and Delivery, Vaginal , DI for Pre-eclampsia, [facility] Post Discharge Instructions, Preventing the Spread of Coronavirus Discharge Instructions - Follow up Plan Follow up with: Shan Porter MD [Primary Care Provider] - Disposition: Home, Self-Residential Medications: Home Medications Medication Instructions Recorded Confirmed Type ondansetron 4 mg disintegrating 4 mg PO Q6H PRN 30 Days #30 tab 06/23/20 09/01/20 Rx tablet Fluoxetine HCl [Prozac] 20 mg PO DAILY 08/27/20 09/01/20 History Vit Calc,Iron,Folic [Kpn] 1 tab PO DAILY 08/27/20 09/01/20 History Prescriptions/Medication Reconciliation: Continued ondansetron 4 mg disintegrating tablet 4 mg PO Q6H PRN 30 Days #30 tab PRN Reason: nausea and vomiting Vit Calc,Iron,Folic [Kpn] 1 tab PO DAILY Fluoxetine HCl [Prozac] 20 mg PO DAILY - Problem Reconciliation Problems Reviewed?: Yes
== END 2020-09-03 15:42 | disposition home or self-care (01) | DRG 807 ==
PROVIDERS: Admitting Provider Nurse Practitioner Obstetrics & Gynecology; PCP Nurse Practitioner Obstetrics & Gynecology; Visit Provider Nurse Practitioner Obstetrics & Gynecology
DX: O76 Abnormality in fetal heart rate and rhythm complicating labor and delivery (principal); Z37.0 Single live birth; Z3A.40 40 weeks gestation of pregnancy; O70.0 First degree perineal laceration during delivery
CPT/HCPCS: 59409; 59025; 80305; 81001; 82800; 85014; 85018; 85025; 86850; 90707; 94761; C1758; G0283; J0595; U0003

== ENCOUNTER 2021-11-16 18:34 | Emergency (ER) | payer MEDICAID, SELFPAY ==
[2021-11-16 19:23] VITALS: BP 144/93; PULSE 98; RESP 16; TEMP 36.8; O2SAT 99; BMI 28.9
[2021-11-16 19:52] LABS: UTC Pregnancy Test, Urine Negative (Negative)
--- NOTE | 2021-11-16 20:09 | HMH.EDUTC ---
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 GO TO THE ER FOR ANY WORSENING SYMPTOMS OR CONCERNS Referrals: Geremias Orozco [Primary Care Provider] - Time of Disposition: 20:22 Medical Decision Making - Medical Records Medical records reviewed: No: I reviewed the patient's medical records. - Zachary Inquiry Pt receiving controlled substance: No Vital Signs: 11/16/21 19:23 11/16/21 20:24 Temperature 98.3 F 98.3 F Temperature Source Oral Pulse Rate 89 Pulse Rate [Radial] 98 H Respiratory Rate 16 16 Blood Pressure 120/80 Blood Pressure [Right Arm] 144/93 H Blood Pressure Mean [Right Arm] 110 02 Sat by Pulse Oximetry 99 - Lab Data Lab Results 11/16/21 19:15: HCG, Quant < 2 11/16/21 19:23: Tst Clinic Negative [facility] [place] HPI - General Stated complaint: test Time Seen by Provider: 11/16/21 20:09 Mode of Arrival: Ambulatory Source of Information: Patient Limitations: No Limitations Description of Symptoms (Recalled from Triage Doc. by RN): here for blood test. she has taken 2 urine tests, one said negative and one said positive HEENT Symptoms (Recalled from RN notes): No Resp Symptoms (Recalled from RN notes): No Skin Symptoms (Recalled from RN notes): No MS Symptoms (Recalled from RN notes): No Functional Status (Recalled from RN notes): wnl - History of Present Illness Provider Complaint: She has had a negative and a positive urine pregnancny test at home. She states that she feels like she might be . She does not have periods because she has an IUD in. She denies any pain or vaginal bleeding or discharge. - Related Data Previous Rx's Medication Instructions Recorded fluoxetine 20 mg capsule 20 mg PO DAILY #30 cap 01/18/21 vits no.130-ferrous fum 1 tab PO DAILY #30 tab 01/18/21 27 mg iron-folic acid 800 mcg tablet metoclopramide HCl 5 mg tablet 5 mg PO QID 10 Days #40 tab 02/02/21 Allergies Allergy/AdvReac Type Severity Reaction Status Date / Time latex Allergy Verified 11/16/21 19:27 - Worker's Comp Is this a Worker's Comp case?: No [facility] History - Hepatitis A Screen Attestation statement:: This patient has been screened for Hepatitis A risk factors. I have reviewed the patient's past medical history: Yes Other Medical History: Reports: Other Comment: ARDS Laterality Cases: Right: Other Other Surgeries: Yes: No Previous Surgery. 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 ROS Obtained: Yes All systems reviewed & no additional complaints - Constitutional Constitutional: Reports as per HPI - ENT Ears, Nose, Mouth, and Throat: Reports system reviewed and no additional complaints, except as docu - Cardiovascular Cardiovascular: Reports system reviewed and no additional complaints, except as docu - Respiratory Respiratory: Reports system reviewed and no additional complaints, except as docu - Gastrointestinal Gastrointestingal: Reports: system reviewed and no additional complaints, except as docu Physical Exam - General General appearance: alert, in no apparent distress - Head Head exam: atraumatic, normocephalic, normal inspection - Eye Eye exam: Present: normal appearance, PERRL, EOMI - ENT ENT exam: Present: normal exam, normal oropharynx, mucous membranes moist, TM's normal bilaterally, normal external ear exam - Neck Neck exam: Present: normal inspection, full ROM, trachea midline. Absent: meningismus, lymphadenopathy - Chest Chest inspection: Present: normal i
[2021-11-16 20:24] VITALS: BP 120/80; PULSE 89; RESP 16; TEMP 36.8
[2021-11-16 21:02] LABS: HCG,Quantitative < 2 mIU/ml (0-5.42)
== END 2021-11-16 20:32 | disposition home or self-care (01) ==
PROVIDERS: Emergency Provider Nurse Practitioner Family; PCP Pediatrics
DX: N91.2 Amenorrhea, unspecified (principal)
CPT/HCPCS: 81025; 84702; 99212; G0463

== ENCOUNTER → 2022-05-23 16:42 | Outpatient (CLI) | payer MEDICAID, SELFPAY ==
[2022-05-25 21:20] LABS: Neisseria gonorrhoeae, NAA Negative (Negative)
== END ==
PROVIDERS: Visit Provider Nurse Practitioner Obstetrics & Gynecology
DX: N89.8 Other specified noninflammatory disorders of vagina (principal)
CPT/HCPCS: 87491; 87591